=== PATIENT | male | born 1965 | race Caucasian/White ===

== ENCOUNTER 2017-09-19 06:42 | Day surgery (SDC) | payer OTHER ==
[~2017-09-19 06:42] MED LIST: SOD CHLORIDE 0.9% 1,000 ML IV
[2017-09-19] MEDS: BROMFENAC SODIUM 1.7 ML OPH DROP OPER (07:56)
[2017-09-19] MEDS: CYCLOPENTOLATE/PHENYLEPH 2 ML OPH OPER (07:56)
[2017-09-19] MEDS: MOXIFLOXACIN 0.5% 3 ML OPH OPER (07:56)
[2017-09-19] MEDS: TROPICAMIDE 1% 3 ML OPH OPER (07:56)
[2017-09-19] MEDS: CEFAZOLIN 1 GM INJ INJ (09:20)
[2017-09-19] MEDS: CARBACHOL 0.01% 1.5 ML OPH INJ IO (09:20)
[2017-09-19] MEDS: DEXAMETHASONE 4 MG/ML 1 ML INJ INJ (09:20)
[2017-09-19] MEDS ORDERED: PROPOFOL 20 ML (09:31)
[2017-09-19] MEDS ORDERED: LIDOCAINE 2% (SDV) 5 ML INJ (09:31)
[2017-09-19] MEDS ORDERED: FENTAnyl 50 MCG/ML VIAL (09:47)
== END 2017-09-19 11:13 | disposition home or self-care (01) ==
LOC: SDS 06:42
DX: H25.11 Age-related nuclear cataract, right eye (principal); Z85.21 Personal history of malignant neoplasm of larynx
CPT/HCPCS: 66984

== ENCOUNTER 2017-12-07 15:04 | Emergency (ER) | payer OTHER ==
[2017-12-07] MEDS: SILVER NITRATE SWAB TOP (17:04)
== END 2017-12-07 18:15 | disposition home or self-care (01) ==
LOC: FTE 15:04
DX: R04.1 Hemorrhage from throat (principal)
CPT/HCPCS: 99282; Z7502

== ENCOUNTER 2017-12-08 11:18 | Emergency (ER) | payer OTHER ==
[2017-12-08] MEDS: SILVER NITRATE SWAB TOP (14:39)
== END 2017-12-08 15:45 | disposition home or self-care (01) ==
LOC: FTE 11:18
DX: R04.89 Hemorrhage from other sites in respiratory passages (principal); Z85.818 Personal history of malignant neoplasm of other sites of lip, oral cavity, and pharynx
CPT/HCPCS: 99282; Z7502

== ENCOUNTER 2019-05-30 23:44 | Emergency (ER) | payer SELFPAY, OTHER | END 2019-05-31 01:09 | disposition left against medical advice (07) | LOC: E/R 23:44 | DX: Z53.21 Procedure and treatment not carried out due to patient leaving prior to being seen by health care provider (principal) | CPT/HCPCS: 93005 ==